=== PATIENT | male | born 1960 | race African-American/Black ===

== ENCOUNTER 2019-01-01 06:58 | Inpatient (IN) | payer OTHER ==
[~2019-01-01] VITALS: Ht 180.3 cm; Wt 122.1 kg
[2019-01-01] MEDS ORDERED: SODIUM CHLORIDE 0.9% 1,000 ML IV ONE ×2 (08:44→09:30)
[2019-01-01 09:11] LABS: CHLORIDE 97 mEq/L (98-107)
[2019-01-01 09:17] LABS: PHOSPHORUS 3.7 mg/dL (2.5-4.9)
[2019-01-01 09:54] LABS: BG BASE EXCESS -2.6 mmol/L (-2.0-2.0); BG CARBOXYHEMOGLOBIN 0.3 % (0.5-1.5); BG DEOXYHEMOGLOBIN 7.4 % (0.0-5.0); BG FRACTION INSPIRED OXYGEN 21; BG HCO3 ACT 22.2 mmol/L (22.0-26.0); BG METHEMOGLOBIN 0.3 % (0.0-1.5); BG OXYGEN SATURATION 92.6 % (92.0-98.5); BG PCO2 38.9 mmHg (35.0-45.0); BG PH 7.375 (7.350-7.450); BG PO2 68.6 mmHg (75.0-100.0); BG SAMPLE SITE RIGHT RADIAL; BG TOTAL HEMOGLOBIN 12.6 g/dL (12.0-18.0); BG VENT MODE ROOM AIR
[2019-01-01] MEDS ORDERED: INSULIN REGULAR (HUMULIN R) 300UNITS/3ML IV NR (10:00)
[2019-01-01] MEDS ORDERED: INSULIN REGULAR (HUMULIN R) 300UNITS/3ML IV ONE ×3 (11:15→15:30)
[2019-01-01] MEDS ORDERED: INSULIN REGULAR (DRIP) 100 UNITS in SODIUM CHLORIDE 0.9% 99 ML IV SCH (19:00)
[2019-01-01 19:20] LABS: BASOPHILS % 0.2 % (0.0-2.0); EOSINOPHILS % 2.1 % (0.0-5.0); HEMATOCRIT. 34.3 % (42.0-52.0); HEMOGLOBIN. 11.5 g/dL (14.0-18.0); LYMPHOCYTES % 30.4 % (20.0-50.0); MEAN CORPUSCULAR VOLUME 80.7 fL (80.0-94.0); MEAN PLATELET VOLUME 7.8 fl (7.4-10.4); MONOCYTES % 7.9 % (2.0-8.0); NEUTROPHILS % 59.4 % (40.0-76.0); PLATELET 206 x1000/uL (130-400); RED BLOOD CELL COUNT 4.26 mill/uL (4.7-6.1); RED CELL DISTRIBUTION WIDTH 16.5 % (11.6-14.6)
[2019-01-01 19:26] LABS: CHLORIDE 110 mEq/L (98-107)
[2019-01-01 19:32] LABS: PHOSPHORUS 2.8 mg/dL (2.5-4.9)
[2019-01-01 19:35] LABS: BETA HYDROXYBUTYRATE 0.4 mMol/L (0.0-0.3)
[2019-01-02] VITALS (11 sets, daily range): BP systolic 94–146; BP diastolic 32–84
[2019-01-02] MEDS ORDERED: CLONIDINE 0.1MG TABLET PO PRN (01:15)
[2019-01-02] MEDS: SODIUM CHL 0.45% + KCL 20MEQ/L 1,000 ML IV SCH ×2 (02:09→13:35)
[2019-01-02] MEDS: PANTOPRAZOLE 40MG DR TABLET PO SCH (04:36)
[2019-01-02] MEDS: ENOXAPARIN 30MG/0.3ML SYR SUBCUT SCH ×2 (04:37→20:41)
[2019-01-02] MEDS: BLOOD SUGAR DIAGNOSTIC STRIP TEST SCH ×3 (05:10→17:47)
[2019-01-02] MEDS: INSULIN LISPRO (HIGH DOSE) 100 UNITS/ML SUBCUT SCH ×2 (05:16→12:33)
[2019-01-02] MEDS ORDERED: INSULIN LISPRO 100 UNITS/ML SUBCUT NR (12:40)
[2019-01-02 13:01] LABS: BASOPHILS % 0.4 % (0.0-2.0); HEMATOCRIT. 34.4 % (42.0-52.0); HEMOGLOBIN. 11.5 g/dL (14.0-18.0); LYMPHOCYTES % 27.3 % (20.0-50.0); MEAN CORPUSCULAR HEMOGLOBIN 27.1 pg (28.0-32.0); MEAN CORPUSCULAR VOLUME 80.9 fL (80.0-94.0); MEAN PLATELET VOLUME 8.1 fl (7.4-10.4); MONOCYTES % 6.4 % (2.0-8.0); NEUTROPHILS % 62.9 % (40.0-76.0); PLATELET 202 x1000/uL (130-400); RED BLOOD CELL COUNT 4.25 mill/uL (4.7-6.1); RED CELL DISTRIBUTION WIDTH 16.4 % (11.6-14.6)
[2019-01-02 13:18] LABS: CHLORIDE 107 mEq/L (98-107)
[2019-01-02 13:27] LABS: HDL CHOLESTEROL 36 mg/dL (40-59)
[2019-01-02 13:29] LABS: LDL CHOLESTEROL 109 mg/dL (5-100)
[2019-01-02] MEDS ORDERED: LISI10TA5 MT (13:51)
[2019-01-02] MEDS ORDERED: PRAV20TA57 MT (13:51)
[2019-01-02] MEDS ORDERED: INSULIN GLARGINE UD 100 UNITS/ML SYR SUBCUT NR ×2 (14:30→18:00)
[2019-01-02] MEDS ORDERED: METF-516 MT (14:42)
[2019-01-02] MEDS ORDERED: b12 PO (14:42)
[2019-01-02] MEDS ORDERED: DORZ10DR12 EACHEYE (14:42)
[2019-01-02] MEDS ORDERED: INSULIN REGULAR (HUMULIN R) UD 100 UNITS/ML SYR SUBCUT NR (15:00)
[2019-01-02] MEDS ORDERED: DIPHENHYDRAMINE 50MG/ML VIAL IV PRN (16:30)
[2019-01-02] MEDS ORDERED: HYDRALAZINE 20MG/ML VIAL IV PRN (16:30)
[2019-01-02] MEDS ORDERED: HYDROCODONE/ACETAMINOPHEN 5/325MG TABLET PO PRN (16:30)
[2019-01-02] MEDS: INSULIN LISPRO 100 UNITS/ML SUBCUT SCH (17:45)
[2019-01-02] MEDS: METFORMIN HCL 500MG TABLET PO SCH (17:53)
[2019-01-02] MEDS: GLYBURIDE 5MG TABLET PO SCH (19:22)
[2019-01-02] MEDS ORDERED: IBUP-2271 PO (19:52)
[2019-01-02] MEDS ORDERED: CYAN-50 PO (19:52)
[2019-01-02] MEDS ORDERED: IBUP-2029 MT (19:54)
[2019-01-02 19:55] LABS: PROTHROMBIN TIME 10.1 sec (9.6-11.0)
[2019-01-02] MEDS ORDERED: MULT-1146 PO (19:55)
[2019-01-02] MEDS ORDERED: SERT-112 PO (19:56)
[2019-01-02] MEDS ORDERED: vitamin d PO (19:59)
[2019-01-02] MEDS: DORZOLAM/TIMOLOL 2.23/0.68% OPHTH DROPS 10ML EACHEYE SCH (20:39)
[2019-01-02] MEDS ORDERED: INSULIN GLARGINE UD 100 UNITS/ML SYR SUBCUT SCH (22:00)
[2019-01-03] VITALS (7 sets, daily range): BP systolic 111–132; BP diastolic 56–85
[2019-01-03] MEDS: INSULIN LISPRO 100 UNITS/ML SUBCUT SCH ×2 (00:03→06:09)
[2019-01-03] MEDS: BLOOD SUGAR DIAGNOSTIC STRIP TEST SCH ×2 (06:04)
[2019-01-03] MEDS: GLYBURIDE 5MG TABLET PO SCH (06:08)
[2019-01-03] MEDS: PANTOPRAZOLE 40MG DR TABLET PO SCH (06:09)
[2019-01-03 06:39] LABS: HEMATOCRIT 35.3 % (42.0-52.0); HEMOGLOBIN 12.1 g/dL (14.0-18.0); MEAN CORPUSCULAR HEMOGLOBIN 27.3 pg (28.0-32.0); MEAN CORPUSCULAR VOLUME 79.8 fL (80.0-94.0); PLATELET 210 x1000/uL (130-400); RED BLOOD CELL COUNT 4.42 mill/uL (4.7-6.1); RED CELL DISTRIBUTION WIDTH 16.5 % (11.6-14.6)
[2019-01-03 06:44] LABS: CHLORIDE 110 mEq/L (98-107)
[2019-01-03 06:54] LABS: T4 FREE 0.97 ng/dL (0.76-1.46)
[2019-01-03] MEDS: METFORMIN HCL 500MG TABLET PO SCH (07:43)
[2019-01-03] MEDS: DORZOLAM/TIMOLOL 2.23/0.68% OPHTH DROPS 10ML EACHEYE SCH (08:28)
[2019-01-03] MEDS: ENOXAPARIN 30MG/0.3ML SYR SUBCUT SCH (08:29)
[2019-01-03] MEDS ORDERED: LISINOPRIL 10MG TABLET PO SCH (09:00)
== END 2019-01-03 09:05 | disposition home or self-care (01) | DRG 638 ==
LOC: ER 06:58 → CANBEDREQ 12:15 → 3WST 17:15 → EDBEDREQTM 17:21 → EDBEDREQSVC 17:21 → EDBEDREQ 17:21 → CANRESERV 20:09 → ENRESERV 20:09 → EDBEDREQTM 21:07 → EDBEDREQSVC 21:07 → ENRESERV 01-02 01:37
PROVIDERS: ADMIT Internal Medicine; ATTEND Internal Medicine
DX: E11.65 Type 2 diabetes mellitus with hyperglycemia (principal); N17.9 Acute kidney failure, unspecified; E78.00 Pure hypercholesterolemia, unspecified; I10 Essential (primary) hypertension; E86.0 Dehydration; E66.9 Obesity, unspecified; H40.9 Unspecified glaucoma; E78.5 Hyperlipidemia, unspecified; Z79.4 Long term (current) use of insulin; Z89.612 Acquired absence of left leg above knee; Z91.11 Patient's noncompliance with dietary regimen; Z68.37 Body mass index [BMI] 37.0-37.9, adult
CPT/HCPCS: 36415; 36600; 71045; 80048; 80061; 82010; 82375; 82805; 82962; 83036; 83735; 84100; 84439; 84443; 84484; 85027; 93005; 93970; 96365; 99291; J1650; J1815; J3480; J7030; J7050